=== PATIENT | female | born 1995 | race American Indian/Alaskan Native ===

== ENCOUNTER 2020-04-08 14:01 | Emergency (ER) | payer SELFPAY ==
[2020-04-08 14:29] VITALS: BP 112/63
--- NOTE | 2020-04-08 18:24 | Emergency Department Report ---
<SUN GRAY - Last Filed: 04/08/20 19:05> ED Female HPI - General Chief complaint: Abdominal Pain Stated complaint: ABD PAIN/ANAL IRRITATION Time Seen by Provider: 04/08/20 18:18 Source: patient Mode of arrival: Ambulatory Limitations: No Limitations - History of Present Illness Initial comments: 25-year-old -Liberian female presents to the emergency room reporting she is having lower abdominal pain is had to home test that are positive. Patient states that she has crampy lower abdominal pain for 2 weeks. She denies any vaginal bleeding or vaginal discharge. She is 2 para 0. Patient reports that she had 1 stillbirth at 22 weeks. MD Complaint: pelvic pain Onset/Timin -: week(s) Location: suprapubic Severity scale (0 -10): 5 Quality: cramping Consistency: intermittent Improves with: none Worsens with: none Are you Now?: Yes Last Menstrual Period: 02/12/20 EDC: 11/18/20 Associated Symptoms: abdominal pain, nausea/vomiting. denies: fever/chills, headaches, loss of appetite, dysuria, hematuria, rash - Related Data Sexually active: Yes : 2 Para: 0 (Stillborn at 22 weeks) Previous Rx's Medication Instructions Recorded Last Taken Type Vit-Fe Fumar-FA [ 1 tab PO QDAY #60 tablet 04/08/20 Unknown Rx Vitamin] Allergies Allergy/AdvReac Type Severity Reaction Status Date / Time No Known Allergies Allergy Unverified 04/08/20 14:25 ED Review of Systems Comment: All other systems reviewed and negative ED Past Medical Hx - Past Medical History Previous Medical History?: No - Surgical History Past Surgical History?: No - Medications Home Medications: Home Medications Medication Instructions Recorded Confirmed Last Taken Type Vit-Fe Fumar-FA [ 1 tab PO QDAY #60 tablet 04/08/20 Unknown Rx Vitamin] ED Physical Exam - General Limitations: No Limitations General appearance: alert - Head Head exam: Present: atraumatic, normocephalic - Eye Eye exam: Present: normal appearance - ENT ENT exam: Present: mucous membranes moist - Neck Neck exam: Present: normal inspection, full ROM - Respiratory Respiratory exam: Present: normal lung sounds bilaterally. Absent: respiratory distress - Cardiovascular Cardiovascular Exam: Present: regular rate - GI/Abdominal GI/Abdominal exam: Present: soft, tenderness (Suprapubic), normal bowel sounds. Absent: distended - Extremities Exam Extremities exam: Present: normal inspection, full ROM - Back Exam Back exam: Present: normal inspection - Neurological Exam Neurological exam: Present: alert, oriented X3, normal gait - Psychiatric Psychiatric exam: Present: normal affect, normal mood ED Medical Decision Making - Medical Decision Making 25-year-old -Liberian female presents to the emergency room reporting she is having lower abdominal pain is had to home test that are positive. Patient states that she has crampy lower abdominal pain for 2 weeks. She denies any vaginal bleeding or vaginal discharge. She is 2 para 0. Patient reports that she had 1 stillbirth at 22 weeks. hCG, urinalysis ultrasound less than 14 weeks with transvaginal. ED Disposition Clinical Impression: First trimester , Left ovarian cyst Disposition: - TO HOME OR SELFCARE Condition: Stable Instructions: Abdominal Pain (ED), (ED), Abdominal Pain in (ED) Additional Instructions: Make sure to follow up with the primary care physician as discussed. Follow-up with [facility]. Take all your medications as you've been prescribed. If you have any worsening symptoms or develop new symptoms please return to ED immediately. Prescriptions: Vit-Fe Fumar-FA [ Vitamin] 1 tab PO QDAY #60 tablet Referrals: PRIMARY CARE, [Primary Care Provider] - 3-5 Days [facility] [Provider Group] - 3-5 Days [facility] [Provider Group] - 3-5 Days Forms: Work/School Release Form(ED) <AGATHA JARA - Last Filed: 04/08/20 21:14> ED Review of Systems ROS: Stated complaint: ABD PAIN/ANAL IRRITATION Other details as noted in HPI ED Course Vital Signs 04/08/20 14:26 Temperature 98.7 F Pulse Rate 85 Respiratory 18 Rate Blood Pressure 112/63 O2 Sat by Pulse 99 Oximetry ED Medical Decision Making - Radiology Data Radiology results: report reviewed, image reviewed Ultrasound Report Signed Patient: MANUELA WALKER MR#: [id number] : 1995 Acct:[id number] Age/Sex: 25 / F ADM Date: 04/08/20 Loc: ED Attending Dr: Ordering Physician: LILA BELLO Date of Service: 04/08/20 Procedure(s): US OB <= 14 weeks fetus Accession Number(s): [id number] cc: LILA BELLO ULTRASOUND OBSTETRIC Indication: Positive test at home with pelvic pain Findings: There is a single, living intrauterine . [place]-rump length = 0.4 cm = 6 weeks, 1 day(s). heart rate is 78 beats per minute. There is a large cyst arising from the left ovary that measures 5.7 x 4.0 cm. No internal complexity is appreciated. No internal Doppler flow.. There is minimal free fluid. Impression: Single, living intrauterine with estimated sonographic age of 6 weeks, 1 day(s). Large 5.7 cm minimally complex cyst arising from the left ovary. Signer Name: Schuyler Jacob MD Signed: 04/08/2020 7:43 PM Workstation Name: [id number] Transcribed By: Dictated By: Schuyler Jacob MD Electronically Authenticated By: Schuyler Jacob MD Signed Date/Time: 04/08/201942 - Medical Decision Making Patient was signed out to me at about 7:20 PM. Urinalysis, CBC and quant returned within normal limits. Urinalysis negative. Pelvic ultrasound shows single intrauterine as described above. Patient had no other complications no vaginal bleeding. Discussed all findings with the patient. I discussed with patient to follow-up with [facility]. Referral was given to patient. Discussed with patient increase hydration to 8 to 10 glasses a day. Discussed vitamins daily. Patient states she understands and will follow-up within the next 2 to 3 days. Vital signs are normal. She is in no acute distress. Critical care attestation.: If time is entered above; I have spent that time in minutes in the direct care of this critically ill patient, excluding procedure time. ED Disposition Is pt being admited?: No Does the pt Need Aspirin: No Time of Disposition: 20:45
[2020-04-08 19:29] LABS: Bilirubin,Urine NEG (Negative); Blood,Urine LG (Negative); Color,Urine Yellow (Yellow); Mucus,Urine FEW /HPF; Protein,Urine <15 mg/dL mg/dL (Negative); Urobilinogen,Urine < 2.0 mg/dL (<2.0)
--- NOTE | 2020-04-08 19:48 | Ultrasound Report ---
ULTRASOUND OBSTETRIC Indication: Positive test at home with pelvic pain Findings: There is a single, living intrauterine . [place]-rump length = 0.4 cm = 6 weeks, 1 day(s). heart rate is 78 beats per minute. There is a large cyst arising from the left ovary that measures 5.7 x 4.0 cm. No internal complexity is appreciated. No internal Doppler flow.. There is minimal free fluid. Impression: Single, living intrauterine with estimated sonographic age of 6 weeks, 1 day(s). Large 5.7 cm minimally complex cyst arising from the left ovary. Signer Name: Schuyler Jacob MD Signed: 04/08/2020 7:43 PM Workstation Name: [id number]
== END 2020-04-08 21:15 | disposition home or self-care (01) ==
LOC: ED 14:01
DX: O26.891 Other specified pregnancy related conditions, first trimester (principal); N83.202 Unspecified ovarian cyst, left side; Z3A.01 Less than 8 weeks gestation of pregnancy; Z79.899 Other long term (current) drug therapy
CPT/HCPCS: 36415; 76801; 76817; 81001; 84702

== ENCOUNTER 2020-06-24 00:21 | Observation (INO) | payer MEDICAID ==
--- NOTE | 2020-06-24 00:50 | Emergency Department Report ---
ED General Adult HPI - General Chief complaint: Urogenital-Female Stated complaint: POSS MISCARRIAGE PUI?: No Time Seen by Provider: 06/24/20 00:52 Source: patient Mode of arrival: Ambulatory Limitations: No Limitations - History of Present Illness Initial comments: The patient was evaluated in the emergency department for symptoms described in the history of present illness. He/she was evaluated in the context of the global COVID-19 pandemic, which necessitated consideration that the patient might be at risk for infection with the virus that causes COVID-19. Institutional protocols and algorithms that pertain to the evaluation of patients at risk for COVID-19 are in a state of rapid change based on information released by regulatory bodies including the CDC and federal and state organizations. These policies and algorithms were followed during the patient's care in the emergency department. Please note that these policies, procedures and recommendations changed on a rapid basis. The patient is a 25-year-old female. She is 2, para 0. She has a prior history of miscarriage. She believes that she follows with a local JUNIOR SYSTEMS ADMINISTRATOR in [place], but she cannot recall their name. She states that she is scheduled for a cervical cerclage on June 28, 2020. She reports that after her previous miscarriage, she reports that her current JUNIOR SYSTEMS ADMINISTRATOR doctor told her that as she became more gravid and progressed in her , she might have issues with cervical incompetence. She presents to the ER today with complaints of feeling a mass in her vagina this evening. She reports that she was attempting to defecate, and was pushing hard, and felt something push out of her vagina. She is not having pain at this time. She denies dysuria and hematuria. She denies vaginal bleeding. She does report vigorous sexual intimacy. As far she knows, she has not been instructed to refrain from sexual activity. She feels like this mass that was being pushed out of her vagina feels improved at this time. She states that she feels a little bit anxious. -: Sudden Consistency: constant, now resolved, other (While defecating) Improves with: rest Worsens with: other (Valsalva/pushing) Associated Symptoms: denies other symptoms, other (Per history of present illness) - Related Data Previous Rx's Medication Instructions Recorded Last Taken Type Vit-Fe Fumar-FA [ 1 tab PO QDAY #60 tablet 04/08/20 06/23/20 09:00 Rx Vitamin] 1 Amoxicillin/Potassium Clav 1 each PO Q12H #14 tablet 06/25/20 Unknown Rx [Augmentin 875-125 Tablet] HYDROcodone/APAP 5-325 [[place] 1 each PO Q6HR PRN #20 tablet 06/25/20 Unknown Rx 5/325] Ibuprofen [Motrin] 800 mg PO Q8HR PRN #30 06/25/20 Unknown Rx Allergies Allergy/AdvReac Type Severity Reaction Status Date / Time No Known Allergies Allergy Unverified 04/08/20 14:25 ED Review of Systems ROS: Stated complaint: POSS MISCARRIAGE Other details as noted in HPI Comment: All other systems reviewed and negative Genitourinary: other (Sensation of mass from vaginal vault). denies: urgency, dysuria, frequency, hematuria, discharge, abnormal menses, dyspareunia ED Past Medical Hx - Past Medical History Previous Medical History?: No - Surgical History Past Surgical History?: No - Social History Smoking Status: Never Smoker Substance Use Type: None - Medications Home Medications: Home Medications Medication Instructions Recorded Confirmed Last Taken Type Vit-Fe Fumar-FA [ 1 tab PO QDAY #60 tablet 04/08/20 06/24/20 06/23/20 09:00 Rx Vitamin] 1 Amoxicillin/Potassium Clav 1 each PO Q12H #14 tablet 06/25/20 Unknown Rx [Augmentin 875-125 Tablet] HYDROcodone/APAP 5-325 [[place] 1 each PO Q6HR PRN #20 tablet 06/25/20 Unknown Rx 5/325] Ibuprofen [Motrin] 800 mg PO Q8HR PRN #30 06/25/20 Unknown Rx ED Physical Exam - General Limitations: No Limitations General appearance: alert, in no apparent distress, obese - Head Head exam: Present: atraumatic, normocephalic - Eye Eye exam: Present: normal appearance, EOMI. Absent: nystagmus - ENT ENT exam: Present: normal exam, normal orophraynx, mucous membranes moist, normal external ear exam - Neck Neck exam: Present: normal inspection, full ROM. Absent: tenderness, meningism us - Respiratory Respiratory exam: Present: normal lung sounds bilaterally. Absent: respiratory distress, wheezes, rales, rhonchi, stridor, decreased breath sounds - Cardiovascular Cardiovascular Exam: Present: regular rate, normal rhythm, normal heart sounds. Absent: bradycardia, tachycardia, irregular rhythm, systolic murmur, diastolic murmur, rubs, gallop - GI/Abdominal GI/Abdominal exam: Present: soft. Absent: distended, tenderness, guarding, rebound, rigid, pulsatile mass - External exam: Present: normal external exam, other (Chaperoned by Jacqueline King) Speculum exam: Present: other (There is no bleeding. The cervix is dilated, with an intact membrane appreciated. Cervix is dilated approximately 4 cm.). Absent: erythema, vaginal discharge, cervical discharge, vaginal bleeding, laceration - Extremities Exam Extremities exam: Present: normal inspection, full ROM, other (2+ pulses noted in the bilateral upper and lower extremities. There is no palpable cord. negative Homans sign. Muscular compartments are soft. The pelvis is stable.). Absent: pedal edema, calf tenderness - Back Exam Back exam: Present: normal inspection, full ROM. Absent: tenderness, CVA tenderness (R), CVA tenderness (L), paraspinal tenderness, vertebral tenderness - Neurological Exam Neurological exam: Present: alert, other (No facial droop. Tongue midline. Extraocular movements intact bilaterally. Facial sensation intact to light touch in V1, V2, V3 distribution bilaterally. 5 and a 5 strength in 4 extremities. Sensation intact to light touch in 4 extremities.) - Psychiatric Psychiatric exam: Present: normal affect, normal mood - Skin Skin exam: Present: warm, dry, intact, normal color. Absent: rash ED Course Vital Signs 06/24/20 06/24/20 00:51 01:43 Temperature 98.7 F 98.1 F Pulse Rate 80 Respiratory 18 Rate Blood Pressure 128/79 [Left] O2 Sat by Pulse 99 98 Oximetry - Reevaluation(s) Reevaluation #1: 06/24/20 00:55 Differential diagnosis, including but not limited to: Cervical incompetence, Assessment and plan: 25-year-old female who is , my bedside ultrasound confirms intrauterine with spontaneous movements, and observed heartbeat, with a complaint of mass being pushed from her cervix. She endorses a history of cervical incompetence. She is afebrile, with reassuring vital signs, with soft benign abdomen. On pelvic examination, she appears to have cervical dilatation, with intact membranes. There is no obvious bleeding. We will discuss with obstetrics supervisor home energy consultant. - Consultations Consultation #1: 06/24/20 01:38 I discussed the patient's history, physical, and pertinent exam findings with wire twisting machine operator on-call, Dr. Saint Whiting. She requests laboratory studies, and formal radiology ultrasound. She request that the patient be sent to the labor and delivery floor, after acquisition of the ultrasound. I have discussed this plan of care with the patient, and she is amenable to this plan of care. The patient also gave me permission to discuss the details of her care with her aunt. I will defer to the obstetrics team to follow-up on ultrasound results, as well as laboratory studies. ED Medical Decision Making - Lab Data Result diagrams: 06/25/20 13:41 Vital Signs 06/24/20 06/24/20 00:51 01:43 Temperature 98.7 F 98.1 F Pulse Rate 80 Respiratory 18 Rate Blood Pressure 128/79 [Left] O2 Sat by Pulse 99 98 Oximetry Lab Results 06/24/20 06/24/20 Range/Units 01:38 01:38 WBC 8.8 (4.5-11.0) K/mm3 RBC 3.61 L (3.65-5.03) M/mm3 Hgb 11.5 (10.1-14.3) gm/dl Hct 33.5 (30.3-42.9) % MCV 93 (79-97) fl MCH 32 (28-32) pg MCHC 35 H (30-34) % RDW 13.4 (13.2-15.2) % Plt Count 225 (140-440) K/mm3 HCG, Quant 00340 H (0-4) mIU/mL - Radiology Data Radiology results: report reviewed Critical care attestation.: If time is entered above; I have spent that time in minutes in the direct care of this critically ill patient, excluding procedure time. ED Disposition Clinical Impression: Cervical insufficiency during in second trimester, antepartum Disposition: OP ADMIT IP TO THIS HOSP Is pt being admited?: Yes Does the pt Need Aspirin: No Condition: Good
[2020-06-24 02:30] LABS: Hematocrit 33.5 % (30.3-42.9); Hemoglobin 11.5 gm/dl (10.1-14.3); Mean Corpuscular HGB Conc 35 % (30-34); Mean Corpuscular Volume 93 fl (79-97); Platelet Count 225 K/mm3 (140-440); Red Blood Count 3.61 M/mm3 (3.65-5.03); Red Cell Distribution Width 13.4 % (13.2-15.2)
[2020-06-24 02:52] LABS: Bilirubin,Urine NEG (Negative); Blood,Urine MOD (Negative); Color,Urine Straw (Yellow); Mucus,Urine FEW /HPF; Protein,Urine <15 mg/dL mg/dL (Negative); Urobilinogen,Urine < 2.0 mg/dL (<2.0); WBC,Urine < 1.0 /HPF (0.0-6.0)
--- NOTE | 2020-06-24 03:41 | Ultrasound Report ---
ULTRASOUND OBSTETRIC INDICATION: Evaluate well-being and cervical measurement. Cervical insufficiency COMPARISON: Obstetrical ultrasound, 04/08/2020 Findings: There is a single intrauterine . BPD = 3.4 cm = 16 weeks, 4 day(s). Head circumference = 12.7 cm = 16 weeks, 3 day(s). Abdominal circumference = 10.0 cm = 16 weeks, 0 day(s). Femur length = 2.4 cm = 17 weeks, 1 day(s). Overall estimated sonographic age = 16 weeks, 4 day(s). heart rate is 148 beats per minute. Estimated weight is 162 grams position is breech. Placenta is posterior and grade 0. The cervical length was not able to be adequately visualized. Impression: 1. Single living intrauterine with estimated sonographic age of 16 weeks, 4 day(s). Signer Name: Tonya More MD Signed: 06/24/2020 3:37 AM Workstation Name: [id number]
[2020-06-24] MEDS ORDERED: LACTATED RINGERS 1,000 ML ONE (04:32)
[2020-06-24] MEDS ORDERED: LACTATED RINGERS 1,000 ML IV SCH ×2 (05:45→21:30)
--- NOTE | 2020-06-24 08:34 | History and Physical Report ---
History of Present Illness Date of examination: 06/24/20 Date of admission: 06/24/20 01:39 Chief complaint: vaginal pressure History of present illness: Pt is a 25 year old -[place] GALLO 11/29/20 at 17w3d who presents with vaginal pressure last night and was found to have prolapsing membranes in the ED. She was transferred to labor and delivery for observation. She has had care at an outside office with referral to [facility]. She reports having two appts, most recently on 06/18/20 when she reports having an ultrasound "where everything is ok." She was scheduled to have a cerclage placed by Dr Schwab at [facility] on 06/28/20. She does note having intercourse on the morning of 06/23/20. She does have a h/o of a delivery at 22 wks with demise. She was scheduled to begin receiving [place] injections in the next week. Past History Past Medical History: no pertinent history Past Surgical History: no surgical history Social history: no significant social history - Obstetrical History Expected Date of Delivery: 11/29/20 Actual Gestation: 17 Week(s) 3 Day(s) : 2 Para: 0 Hx # Term Pregnancies: 0 Number of Pregnancies: 1 Spontaneous Abortions: 0 Induced : 0 Number of Living Children: 0 Medications and Allergies Allergies Allergy/AdvReac Type Severity Reaction Status Date / Time No Known Allergies Allergy Unverified 04/08/20 14:25 Home Medications Medication Instructions Recorded Confirmed Last Taken Type Vit-Fe Fumar-FA [ 1 tab PO QDAY #60 tablet 04/08/20 06/24/20 06/23/20 09:00 Rx Vitamin] 1 Active Meds: Active Medications Butorphanol Tartrate (Butorphanol 2 Mg/1 Ml Inj) 2 mg IV Q2H PRN PRN Reason: Labor Pain Lactated Ringer's (Lactated Ringers) 1,000 mls @ 125 mls/hr IV DIRECT NELLA Review of Systems All systems: negative - Vital Signs Vital signs: Vital Signs Temp Pulse Ox 98.7 F 99 06/24/20 00:51 06/24/20 00:51 Temp Pulse Resp BP Pulse Ox 99.7 F H 99 H 18 104/58 98 06/24/20 07:59 06/24/20 08:31 06/24/20 04:27 06/24/20 07:53 06/24/20 08:31 - Physical Exam Breasts: Positive: deferred Abdomen: Positive: soft (obese ) Genitourinary (Female): Positive: normal external genitalia Uterus: Positive: enlarged (gravid ) Extremities: Positive: normal - Obstetrical Cervical Dilatation: 5 (Speculum exam with no visible cervix, only bulging bag) Uterine Tone Measurement Phase: Resting Results Result Diagrams: 06/24/20 01:38 Abnormal lab results 06/24/20 06/24/20 Range/Units 01:38 01:38 RBC 3.61 L (3.65-5.03) M/mm3 MCHC 35 H (30-34) % HCG, Quant 70438 H (0-4) mIU/mL All other labs normal. Assessment and Plan A: IUP at 17w3d H/o cervical incompetence; previously scheduled for cerclage on 06/28/20 Inevitable with dilated cervix and bulging bag Obesity P: Continue observation MFM consult regarding inpatient vs outpatient management Closely monitor clinical status
--- NOTE | 2020-06-24 10:03 | Event Note ---
Date: 06/24/20 Contact made with GINA Cole who reports that if patient is asymptomatic she may return with contractions, vaginal bleeding or leakage of fluid. Pt notes that she is now starting to have cramping more often. Continue observation.
[2020-06-24] MEDS: BUTORPHANOL 2 MG/1 ML INJ IV PRN ×3 (10:10→18:52)
[2020-06-24] MEDS ORDERED: ONDANSETRON 4 MG/2 ML INJ IV SCH (19:00)
[2020-06-24] MEDS ORDERED: OXYTOCIN DRIP 30,000 MILLIUNITS/500 ML BAG IV ONE (19:06)
[2020-06-24] MEDS ORDERED: miSOPROStol 200 MCG TAB ONE (19:40)
[2020-06-24] MEDS ORDERED: miSOPROStol 200 MCG TAB VG ONE (20:00)
--- NOTE | 2020-06-24 20:01 | Procedure Note ---
OB Delivery Note - Delivery Date of Delivery: 06/24/20 Surgeon: YESY STANTON Estimated blood loss: 300cc - Vaginal Delivery presentation: breech Intrapartum events: labor-<37 weeks, PROM->1hr before delivery Delivery induction: none Delivery monitor: external uterine Route of delivery: Delivery placenta: other (retained placenta ) Episiotomy: none Delivery laceration: none Anesthesia: intravenous Delivery comments: While receptionist/telephone operator provider en-route, the patent delivered a non-viable male fetus via spontaneous vaginal delivery. Cord was clamped and cut and fetus placed on warmer. Placenta did not deliver spontaneously. Misoprostol 800 mcg placed per vagina at 1745 pm. - A at 1 minute: 0 at 5 minutes: 0 (wt pending) Gender: Male
[2020-06-24] MEDS ORDERED: SODIUM CHLORIDE 0.9% 500 ML 500 ML IV SCH (20:02)
[2020-06-24] MEDS ORDERED: FAMOTIDINE 20 MG/2 ML INJ IV ONE ×2 (21:16→22:00)
[2020-06-24] MEDS ORDERED: BICITRA ORAL LIQD 30ML ONE (21:16)
[2020-06-24] MEDS ORDERED: METOCLOPRAMIDE 10 MG/2 ML INJ ONE (21:16)
[2020-06-24] MEDS ORDERED: ceFAZolin/Water 2 GM/20 ML 2 GM/20 ML SYRINGE IV ONE (21:17)
[2020-06-24] MEDS ORDERED: BICITRA ORAL LIQD 30ML PO ONE (21:18)
[2020-06-24] MEDS ORDERED: METOCLOPRAMIDE 10 MG/2 ML INJ IV ONE (21:18)
--- NOTE | 2020-06-24 21:22 | Anesthesia Day of Surgery ---
Anesthesia Day of Surgery - Day of Surgery Patient Examined: Yes Patient H&P Reviewed: Yes Patient is NPO: Yes (h2o 1999) Beta Blockers: No Cardiac Clearance: No Pulmonary Clearance: No Henrry's Test: N/A
[2020-06-24] MEDS ORDERED: ONDANSETRON 4 MG/2 ML INJ IV PRN (21:23)
[2020-06-24] MEDS ORDERED: HYDROmorphone 1 MG/1 ML INJ IV PRN (21:23)
[2020-06-24] MEDS ORDERED: NALOXONE 0.4 MG/1 ML INJ IV PRN (21:23)
--- NOTE | 2020-06-24 21:23 | Anesthesia Consultation ---
Anesthesia Consult and Med Hx Date of service: 06/24/20 - Airway Anesthetic Teeth Evaluation: Good ROM Head & Neck: Adequate Mental/Hyoid Distance: Adequate Mallampati Class: Class II Intubation Access Assessment: Probably Good - Pulmonary Exam CTA: Yes - Cardiac Exam Cardiac Exam: RRR - Pre-Operative Health Status ASA Pre-Surgery Classification: ASA2, Emergency Proposed Anesthetic Plan: General, TIVA - Pulmonary Hx Smoking: No Hx Asthma: No Hx Respiratory Symptoms: No SOB: No COPD: No Home Oxygen Therapy: No Hx Pneumonia: No Hx Sleep Apnea: No - Cardiovascular System Hx Hypertension: No Hx Coronary Artery Disease: No Hx Heart Attack/AMI: No Hx Angina: No Hx Percutaneous Transluminal Coronary Angioplasty (PTCA): No Hx Cardia Arrhythmia: No Hx Pacemaker: No Hx Internal Defibrillator: No Hx Valvular Heart Disease: No Hx Heart Murmur: No Hx Peripheral Vascular Disease: No - Central Nervous System Hx Neuromuscular Disorder: No Hx Seizures: No CVA: No Hx Back Pain: No Hx Psychiatric Problems: No - Gastrointestinal Hx Ulcer: No Hx Gastroesophageal Reflux Disease: Yes - Endocrine Hx Renal Disease: No Hx End Stage Renal Disease: No Hx Cirrhosis: No Hx Liver Disease: No Hx Insulin Dependent Diabetes: No Hx Non-Insulin Dependent Diabetes: No Hx Thyroid Disease: No Hx Hypothyroidism: No Hx Hyperthyroidism: No - Hematic Hx Anemia: No Hx Sickle Cell Disease: No - Other Systems Hx Alcohol Use: No Hx Substance Use: No Hx Cancer: No Hx Obesity: Yes
[2020-06-24] MEDS ORDERED: METHYLERGONOVINE MALEATE 0.2 MG/ML VIAL IM ONE (21:37)
[2020-06-24] MEDS ORDERED: miSOPROStol 200 MCG TAB PR ONE (21:38)
[2020-06-24] MEDS ORDERED: KETAMINE/STERILE WATER 50 MG/ML SYRINGE ONE (21:40)
[2020-06-24] MEDS ORDERED: propofoL 200 MG/20 ML VIAL IV ONE (21:40)
[2020-06-24] MEDS ORDERED: MIDAZOLAM 5 MG/5 ML INJ MDV IV ONE (21:45)
[2020-06-24] MEDS ORDERED: KETOROLAC 30 MG/1 ML INJ ONE (21:54)
[2020-06-24] MEDS ORDERED: ONDANSETRON 4 MG/2 ML INJ ONE (21:54)
[2020-06-24] MEDS ORDERED: ceFAZolin/Water 2 GM/20 ML 2 GM/20 ML SYRINGE IV NR (22:00)
[2020-06-24] MEDS ORDERED: OXYTOCIN DRIP 30 UNITS/500 ML BAG IV SCH (22:00)
[2020-06-24] MEDS ORDERED: miSOPROStol 100 MCG TAB ONE (22:01)
--- NOTE | 2020-06-24 22:31 | Operative Report ---
Operative Report Operative Report: Date of procedure: June 24, 2020 Preoperative diagnosis: 1) s/p Spontaneous at 17 wks 2) Retained Placenta Postoperative diagnosis: Same Procedure: 1) Suction Dilation and Curettage Surgeon: Bridgette Gagnon MD Anesthesia: General EBL: 300 mL Findings: 1) Cervix dilated with placenta coming through external os Specimens: Placenta to pathology Drains: None Complications: None. Counts correct x 2 Disposition: Stable to PACU Indication for procedure: The patient is a 25 year old -[place] who had a spontaneous at 17 wks complicated by retained placenta. The decision was made to proceed to the OR for suction dilation and curettage. Operation in detail: After the risks, benefits alternatives and complications were explained to the patient, she gave informed consent for the procedure. She was subsequently taken to the operating room and placed in the dorsal supine position. She was given Ancef 2g prior to the start of the procedure. General anesthesia was then induced without difficulty. The patient was then placed in the high lithotomy position in Henrry stirrups and prepped and draped in a normal sterile fashion. A time out was then performed. A catheter was used to drain the bladder of 50 mL of clear urine. The vagina and perineum were inspected and no lacerations were noted. The placenta was noted to be partially extruding into the vagina. The placenta was grasped with a ring forceps and delivered. A suction curettage was performed with a number 10 cannula and the products of conception were sent to pathology. A sharp curettage confirmed all quadrants are gritty. Methergine 0.2 mg IM was administered. All instruments were removed from the vagina. Misoprostol 600 micrograms was placed per rectum. At this time the procedure was ended. The patient was replaced in the dorsal supine position. She was then extubated without difficulty. She was subsequently taken to the PACU in stable condition. The patient tolerated the procedure well. All instrument and lap counts were correct x 2.
--- NOTE | 2020-06-24 22:31 | Post Operative Note ---
Date of procedure: 06/24/20 Pre-op diagnosis: spontaneous at 17wks, retained placenta Post-op diagnosis: same Findings: Retained placenta with open cervix Procedure: Suction dilation and curettage Anesthesia: MAC Surgeon: YESY STANTON Estimated blood loss: other (300 mL) Pathology: list (placenta) Specimen disposition: to lab Condition: stable Disposition: PACU
--- NOTE | 2020-06-24 22:44 | Post Anesthesia Evaluation ---
- Post Anesthesia Evaluation Patient Participated: Yes Airway Patent: Yes Stable Respiratory Function: Yes Nausea/Vomiting: No Temp > 96.8F: Yes Pain Manageable: Yes Adequeate Hydration: Yes Anesthesia Complications: No Block Receding Appropriately: Yes Patient on Ventilator: No
[2020-06-24] MEDS ORDERED: ACETAMINOPHEN 325 MG TAB PO PRN ×2 (23:21→23:43)
[2020-06-25] MEDS ORDERED: PROMETHAZINE 25 MG RECT SUPP PR PRN (01:01)
[2020-06-25] MEDS ORDERED: LANOLIN/ZINC/DIMETHICONE (LANSINOH) 7 GM TP PRN (01:01)
[2020-06-25] MEDS ORDERED: ONDANSETRON 4 MG/2 ML INJ IV PRN (01:01)
[2020-06-25] MEDS ORDERED: WITCH HAZEL/ GLYCERIN PAD TP PRN (01:01)
[2020-06-25] MEDS ORDERED: MAGNESIUM HYDROXIDE (MOM) ORAL LIQD UDC PO PRN (01:01)
[2020-06-25] MEDS ORDERED: ACETAMINOPHEN 325 MG TAB PO PRN (01:01)
[2020-06-25] MEDS ORDERED: HYDROcodone/ACETAMINOPHEN 5-325 MG TAB PO PRN (01:01)
[2020-06-25] MEDS ORDERED: diphenhydrAMINE 25 MG CAP PO PRN (01:01)
[2020-06-25] MEDS ORDERED: PROMETHAZINE 25 MG TAB PO PRN (01:01)
[2020-06-25] MEDS: IBUPROFEN 600 MG TAB PO SCH ×2 (02:09→10:02)
[2020-06-25] MEDS ORDERED: MEASLES, MUMPS & RUBELLA 12,500 UNIT/0.5 ML VACCINE SUB-Q ONE (06:00)
[2020-06-25] MEDS ORDERED: DIPHtheria,PERTUSSIS(ACELL),TETANUS VACCINE/PF 0.5 ML VIAL IM ONE (06:00)
--- NOTE | 2020-06-25 07:40 | Progress Note ---
Assessment and Plan A: PPD#1 s/p spontaneous at 17 wks POD#1 s/p suction dilation and curettage for retained placenta Obesity P: Routine postoperative care Monitor clinically Consider discharge later today Subjective - Subjective Date of service: 06/25/20 Principal diagnosis: s/p spontaneous , POD#1 s/p suction D&C for retained placenta Interval history: Pt doing well today. She has no complaints. Patient reports: appetite normal, voiding normally, pain well controlled, ambulating normally Objective - Vital Signs Latest vital signs: Vital Signs Temp Pulse Resp BP BP Pulse Ox 06/25/20 04:41 99.4 F 100 H 18 96/54 93 06/25/20 00:30 99.8 F H 105 H 18 115/60 98 06/25/20 00:05 106 H 20 100/64 06/25/20 00:00 101 H 14 87/37 06/24/20 23:45 105 H 14 94/43 06/24/20 23:30 100 H 25 H 93/39 06/24/20 23:15 105 H 18 79/39 06/24/20 23:00 100.1 F H 101 H 24 92/43 06/24/20 22:45 97 H 21 94/41 06/24/20 22:40 97 H 21 91/39 06/24/20 22:35 99.9 F H 96 H 15 88/38 06/24/20 22:30 99.9 F H 99 H 24 91/37 06/24/20 21:18 114 H 99 06/24/20 21:13 117 H 100 06/24/20 21:08 123 H 100 06/24/20 21:03 125 H 99 06/24/20 20:58 113 H 100 06/24/20 20:53 113 H 100 06/24/20 20:48 116 H 99 06/24/20 20:43 111 H 100 06/24/20 20:38 110 H 100 06/24/20 20:33 107 H 100 06/24/20 20:28 107 H 100 06/24/20 20:23 108 H 100 06/24/20 20:18 114 H 100 06/24/20 20:13 106 H 100 06/24/20 20:08 102 H 100 06/24/20 20:03 111 H 97 12/14/20 19:58 107 H 96 12/14/20 19:54 100.7 F H 106 H 18 117/71 98 12/14/20 19:53 103 H 99 12/14/20 19:48 103 H 99 12/14/20 19:43 103 H 100 12/14/20 19:39 110 H 89 12/14/20 19:38 117 H 99 12/14/20 19:33 115 H 100 12/14/20 19:28 99 H 90 12/14/20 19:23 104 H 97 12/14/20 19:18 115 H 117/71 97 12/14/20 19:13 112 H 99 12/14/20 19:09 121 H 94 12/14/20 19:08 107 H 98 12/14/20 19:04 25 L 85 12/14/20 19:03 119 H 98 12/14/20 18:58 128 H 100 12/14/20 18:53 104 H 100 12/14/20 18:48 108 H 100 12/14/20 18:43 102 H 100 12/14/20 18:38 99 H 100 12/14/20 18:33 105 H 100 12/14/20 18:28 110 H 100 12/14/20 18:23 115 H 99 12/14/20 18:18 103 H 100 12/14/20 18:13 107 H 100 12/14/20 18:08 107 H 100 12/14/20 18:03 115 H 100 12/14/20 17:58 114 H 100 12/14/20 17:53 125 H 99 12/14/20 17:48 101 H 100 12/14/20 17:43 104 H 99 12/14/20 17:38 113 H 100 12/14/20 17:33 107 H 100 12/14/20 17:30 111 H 117/65 12/14/20 17:29 99.9 F H 108 H 12/14/20 17:28 105 H 100 12/14/20 17:23 113 H 97 12/14/20 17:18 108 H 99 12/14/20 17:13 106 H 99 12/14/20 17:08 114 H 100 12/14/20 17:03 102 H 100 12/14/20 16:58 102 H 100 12/14/20 16:53 109 H 98 12/14/20 16:48 105 H 98 12/14/20 16:43 99 H 98 12/14/20 16:38 105 H 97 12/14/20 16:33 109 H 98 12/14/20 16:28 104 H 98 12/14/20 16:23 107 H 98 12/14/20 16:18 104 H 97 12/14/20 16:13 107 H 98 12/14/20 16:08 99 H 98 12/14/20 16:03 104 H 97 12/14/20 15:58 100 H 97 12/14/20 15:53 101 H 100 12/14/20 15:48 101 H 100 12/14/20 15:44 95 H 92 12/14/20 15:43 100 H 99 12/14/20 15:38 105 H 100 12/14/20 15:33 107 H 99 12/14/20 15:28 108 H 100 12/14/20 15:23 110 H 100 12/14/20 15:18 105 H 100 12/14/20 15:14 100.7 F H 105 H 12/14/20 15:13 101 H 100 12/14/20 15:08 104 H 100 12/14/20 15:03 109 H 98 12/14/20 14:58 113 H 100 12/14/20 14:53 109 H 100 12/14/20 14:48 116 H 100 12/14/20 14:43 117 H 100 12/14/20 14:40 97 H 89 12/14/20 14:38 95 H 100 12/14/20 14:33 90 98 12/14/20 14:28 90 98 12/14/20 14:23 95 H 99 12/14/20 14:18 94 H 98 12/14/20 14:13 99 H 97 12/14/20 14:11 110 H 87 12/14/20 14:08 96 H 100 12/14/20 14:03 94 H 99 12/14/20 13:58 98 H 99 12/14/20 13:53 95 H 99 12/14/20 13:48 99 H 99 12/14/20 13:43 101 H 99 12/14/20 13:38 98 H 99 12/14/20 13:33 97 H 98 12/14/20 13:28 102 H 98 12/14/20 13:23 103 H 98 12/14/20 13:18 102 H 99 12/14/20 13:13 96 H 99 12/14/20 13:08 105 H 100 12/14/20 13:03 112 H 99 12/14/20 12:54 102 H 99 12/14/20 12:49 102 H 99 12/14/20 12:44 95 H 99 12/14/20 12:39 103 H 99 12/14/20 12:34 118 H 99 12/14/20 12:24 103 H 96 12/14/20 12:23 104 H 92 12/14/20 12:19 101 H 100 12/14/20 12:14 98 H 100 12/14/20 12:09 101 H 99 12/14/20 12:04 96 H 99 12/14/20 11:59 103 H 99 12/14/20 11:54 100 H 100 12/14/20 11:49 104 H 99 12/14/20 11:44 93 H 99 12/14/20 11:39 96 H 99 12/14/20 11:34 108 H 99 12/14/20 11:29 103 H 98 12/14/20 11:24 111 H 97 12/14/20 11:19 101 H 98 12/14/20 11:14 96 H 97 12/14/20 11:09 100 H 98 12/14/20 11:05 104 H 94 12/14/20 11:04 96 H 95 12/14/20 10:59 100 H 98 12/14/20 10:54 94 H 96 12/14/20 10:49 95 H 98 12/14/20 10:44 88 97 12/14/20 10:39 97 H 98 12/14/20 10:34 99 H 96 12/14/20 10:26 88 97 12/14/20 10:21 95 H 97 12/14/20 10:16 109 H 96 12/14/20 10:14 104 H 94 12/14/20 10:11 109 H 97 12/14/20 10:06 101 H 98 12/14/20 10:01 104 H 98 12/14/20 09:56 107 H 99 12/14/20 09:51 103 H 99 12/14/20 09:46 103 H 99 12/14/20 09:41 104 H 98 12/14/20 09:36 103 H 98 06/24/20 09:31 103 H 98 06/24/20 09:26 102 H 99 06/24/20 09:21 95 H 99 06/24/20 09:16 94 H 98 06/24/20 09:11 102 H 99 06/24/20 09:06 107 H 98 06/24/20 09:01 101 H 99 06/24/20 08:56 104 H 98 06/24/20 08:51 109 H 99 06/24/20 08:46 98 H 99 06/24/20 08:41 96 H 98 06/24/20 08:36 103 H 99 06/24/20 08:31 99 H 98 06/24/20 08:26 99 H 99 06/24/20 08:21 100 H 99 06/24/20 08:16 105 H 98 06/24/20 08:11 100 H 99 06/24/20 08:06 106 H 100 06/24/20 08:01 102 H 99 06/24/20 07:59 99.7 F H 98 H 06/24/20 07:56 94 H 100 06/24/20 07:53 90 104/58 06/24/20 07:51 100 H 99 06/24/20 07:45 108 H 97 06/24/20 07:40 94 H 98 Intake and Output 06/24/20 06/25/20 06/25/20 22:59 06:59 14:59 Intake Total 0 200 Output Total 500 450 Balance -500 -250 Intake: IV 0 Oral 200 Output: Urine 500 450 Void 500 450 Other: Total, Intake Amount 200 Total, Output Amount 200 300 # Voids Void 1 - Exam Breasts: Present: deferred Abdomen: Present: soft (obese ) Uterus: Present: fundal height below umbilicus Extremities: Present: normal - Labs Labs: Abnormal lab results 06/24/20 Range/Units 01:40 Crossmatch See Detail
[2020-06-25] MEDS ORDERED: FERROUS SULFATE 325 MG TAB PO SCH (10:00)
[2020-06-25 14:05] LABS: Hematocrit 33.1 % (30.3-42.9); Hemoglobin 11.2 gm/dl (10.1-14.3)
--- NOTE | 2020-06-25 14:40 | Discharge Summary ---
Providers - Providers Date of Admission: 06/24/20 01:39 Date of discharge: 06/25/20 Attending physician: SMITHA CRUZ Primary care physician: PASTORA NORMAN II, MD Hospitalization Reason for admission: other (Inevitable at 17 wks ) Delivery: Procedure details: Please see delivery note. Episiotomy: none Laceration: none Other procedures: curettage complications: retained placenta Discharge diagnosis: other (Spontaneous at 17 wks ) baby: male Hospital course: Pt admitted with vaginal pressure and was found to have dilated cervix with bulging membranes. She subsequently delivered a non viable male fetus. The delivery was complicated by retained placenta and pt underwent a suction dilation and curettage which she tolerated well. She met discharge criteria on POD#1. She will follow up in the office in two weeks with Dr Gagnon. Condition at discharge: Good Disposition: DC- TO HOME OR SELFCARE - Discharge Diagnoses (1) Obesity Status: Acute Qualifiers: Obesity type: unspecified obesity type Obesity classification: adult class 2 (BMI 35 - 39.9) Serious obesity comorbidity presence: unspecified whether serious comorbidity present Body mass index: BMI 35.0-35.9 Qualified Code(s): E66.9 - Obesity, unspecified; Z68.35 - Body mass index [BMI] 35.0-35.9, adult (2) Inevitable spontaneous Status: Acute (3) Retained placenta Status: Acute Qualifiers: Retained placenta detail: complete placenta Qualified Code(s): O73.0 - Retained placenta without hemorrhage (4) Cervical insufficiency during in second trimester, antepartum Status: Acute Plan - Discharge Medications Prescriptions: Amoxicillin/Potassium Clav [Augmentin 875-125 Tablet] 1 each PO Q12H #14 tablet Ibuprofen [Motrin] 800 mg PO Q8HR PRN #30 PRN Reason: Pain, Moderate (4-6) HYDROcodone/APAP 5-325 [[place] 5/325] 1 each PO Q6HR PRN #20 tablet PRN Reason: Pain - Provider Discharge Summary Activity: routine, no sex for 6 weeks, no heavy lifting 4 weeks, no strenuous exercise Diet: routine Instructions: routine Additional instructions: [] Smoking cessation referral if applicable(refer to patient education folder for contact #) [] Refer to [facility] Booklet Call your doctor immediately for: * Fever > 100.5 * Heavy vaginal bleeding ( >1 pad per hour) * Severe persistent headache * Shortness of breath * Reddened, hot, painful area to leg or breast * Drainage or odor from incision. * Keep incision clean and dry at all times and follow doctor's instructions regarding bathing/showering - Follow up plan Follow up: PASTORA NORMAN II, MD [Primary Care Provider] - 7 Days YESY GAGNON MD [Staff Physician] - 07/16/20 (Please call to schedule a postop apt )
[2020-06-25 16:36] VITALS: BP 107/62
== END 2020-06-25 15:40 | disposition home or self-care (01) ==
LOC: ED 00:21 → LD 01:39 → OB 06-25 00:29
PROVIDERS: ADMIT Obstetrics & Gynecology; ATTEND Obstetrics & Gynecology
DX: O03.4 Incomplete spontaneous abortion without complication (principal); O73.0 Retained placenta without hemorrhage; O34.32 Maternal care for cervical incompetence, second trimester; O26.892 Other specified pregnancy related conditions, second trimester; E66.9 Obesity, unspecified; Z3A.17 17 weeks gestation of pregnancy
CPT/HCPCS: 36415; 59812; 76805; 81001; 84702; 85014; 85018; 85027; 86850; 86900; 86901; 86920; 96361; 96374; 96375; 96376; 99284; G0378; J0595; J1885; J2210; J2250; J2405; J2704; J2765; J3490; J7120

== ENCOUNTER 2022-03-21 17:59 | Emergency (ER) | payer MEDICAID ==
[2022-03-21 19:14] VITALS: BP 107/64
== END 2022-03-22 13:29 | disposition left against medical advice (07) ==
LOC: ED 17:59
DX: S31.109A Unspecified open wound of abdominal wall, unspecified quadrant without penetration into peritoneal cavity, initial encounter (principal); Z53.21 Procedure and treatment not carried out due to patient leaving prior to being seen by health care provider